=== PATIENT | male | born 1960 | race Caucasian/White ===

== ENCOUNTER 2019-02-15 20:16 | Inpatient (IN) | payer OTHER ==
[~2019-02-15] VITALS: Ht 167.6 cm; Wt 75.0 kg
[2019-02-15 20:39] VITALS: Ht 167.6 cm; Wt 75.0 kg
--- NOTE | 2019-02-15 20:54 | NUR ---
PT BROUGHT IN BY FAMILY FOR WORSENING COUGH, AGITATION, AND SOB X 3 DAYS. PT AWAKE, ALERT, RESPIRATIONS APPEARS EVEN AND SYMMETRIC BUT SHALLOW AND LABORED. 02 SAT WAS IMMEDIATELY ASSESSED AND NOTED TO BE 75% ON ROOM AIR. PATIENT WAS THEN PLACED ON 10L NONREBREATHER MASK AND NOTED TO BE 98% SHORTLY AFTER. FAMILY AND CAREGIVER AT BEDSIDE. DR. OAKLEY WAS IN FOR MSE. SAFETY PRECAUTIONS IN PLACE. WILL CONTINUE TO MONITOR
--- NOTE | 2019-02-15 21:12 | NUR ---
RT AT BEDSIDE
--- NOTE | 2019-02-15 21:14 | NUR ---
RT AT BEDSIDE
[2019-02-15 21:16] LABS: BASOPHIL % 0.3 % (0-2); PLATELET COUNT 246 x10^3mcL (130-400); RED CELL DISTRIBUTION WIDTH 13.1 % (11.5-14.5)
--- NOTE | 2019-02-15 21:18 | NUR ---
RT AT BEDSIDE CURRENTLY GIVING RT TREATMENT. XRAY AT BEDSIDE
[2019-02-15 21:24] LABS: CALCIUM 9.3 mg/dL (8.5-10.1); CARBON DIOXIDE 29.7 mmol/L (21-32); CHLORIDE SERUM 102 mmol/L (98-107); GFR1 > 60 mL/min; GLUCOSE SERUM 122 mg/dL (74-106); POTASSIUM SERUM 4.5 mmol/L (3.5-5.1); SODIUM SERUM 138 mmol/L (136-145)
[2019-02-15 21:30] LABS: ALKALINE PHOSPHATASE 63 U/L (46-116); ALT/SGPT 17 U/L (16-63); AST/SGOT 11 U/L (15-37); BILIRUBIN TOTAL 0.23 mg/dL (0.20-1.00); TOTAL PROTEIN, SERUM 6.5 g/dL (6.4-8.2)
[2019-02-15 21:33] LABS: ALBUMIN 3.2 g/dL (3.4-5.0)
--- NOTE | 2019-02-15 21:47 | NUR ---
MEDICATED PER EMAR. PT AWAKE, ALERT, RESPIRATIONS APPEARS LESS LABORED AT THIS TIME. WILL CONTINUE TO MONITOR. SAFETY PRECAUTIONS IN PLACE
--- NOTE | 2019-02-15 22:15 | NUR ---
PATIENT PLACED ON 2L/NC BY DR. OAKLEY. WILL MONITOR CLOSELY.
--- NOTE | 2019-02-15 22:32 | NUR ---
DR. OAKLEY NOTIFIED 02 SAT 91% ON 2L/NC. PER DR. OAKLEY, INCREASE TO 4L. INCREASED REQUESTED. WILL CONTINUE TO MONITOR. RESPIRATIONS EVEN AND UNLABORED AT THIS TIME
[2019-02-15] MEDS ORDERED: BUSPIRONE HCL10 MG PO (23:33)
[2019-02-15] MEDS ORDERED: RISPERIDONE3 M2 PO (23:33)
[2019-02-15] MEDS ORDERED: PAROXETINE HCL40 M1 PO (23:33)
[2019-02-15] MEDS ORDERED: BENZTROPINE MESY1 MG PO (23:33)
--- NOTE | 2019-02-15 23:40 | NUR ---
REPORT GIVEN TO THAO DODGE, ALL QUESTIONS AND CONCERNS WERE ADDRESSED
--- NOTE | 2019-02-15 23:50 | NUR ---
RECEIVED PT VIA [facility] ACCOMPANIED BY JOSÉ RN, UI UX WEB DEVELOPER, PT'S NEICE, AND PT'S CAREGIVER. PT IS A&OX4, ABLE TO FOLLOW COMMANDS. AUDIBLE EXPIRATORY WHEEZES NOTED. ON 2L NASAL CANNULA. NO SIGNS OF LABORED BREATHING. DENIES CP AND PAIN. ROOM 257-B. WILL RESUME CARE.
--- NOTE | 2019-02-15 23:55 | NUR ---
PT TRANSFERED TO TELE WITHOUT ANY S/S OF ACUTE DISTRESS. NO ISSUES ENCOUNTERED. SURU RN ACCEPTED PATIENT
[2019-02-16] VITALS (8 sets, daily range): BP systolic 88–107; BP diastolic 34–55
--- NOTE | 2019-02-16 00:12 | NUR ---
RECEIVED PT FROM ED VIA [email or web address]. ORIENTED PT TO ROOM AND SURROUNDINGS. IV NOTED TO LAC PATENT AND INTACT. TELE 21 PLACED ON PT READING SR WITH ELEVATED T WAVE. INSTRUCTED PT ON THE USE OF CALL LIGHT FOR ASSISTANCE. ENDORSED PT TO PRIMARY NURSE THAO
--- NOTE | 2019-02-16 00:27 | NUR ---
RECEIVED UPDATES FROM [facility]. PT IS A&OX4, ABLE TO FOLLOW COMMANDS. AUDIBLE EXPIRATORY WHEEZES NOTED. ON 2L NASAL CANNULA. NO SIGNS OF LABORED BREATHING. DENIES CP AND PAIN. STARTED MAINTENANCE FLUIDS - NS @ 100ML/HR. PT COMFORTABLE AND RESTING. X3 SIDE RAILS UP, BED IN LOWEST POSITION, CALL LIGHT WITHIN REACH. WILL CONTINUE TO MONITOR.
[2019-02-16 02:01] LABS: CHOLESTEROL/HDL RATIO 3.3; MAGNESIUM 2.1 mg/dL (1.8-2.4); PHOSPHOROUS 4.6 mg/dL (2.5-4.9)
[2019-02-16 02:08] LABS: FREE T4 0.93 ng/dL (0.76-1.46); FREE THYROXINE INDEX 1.8 ug/dL (1.4-4.5); T4(THYROXINE) 5.2 ug/dL (4.7-13.3)
[2019-02-16 02:22] LABS: T3 TOTAL 0.94 ng/mL
--- NOTE | 2019-02-16 03:20 | NUR ---
PT RESTING AND COMFORTABLE. BREATHING E/U. NO ACUTE DISTRESS NOTED. X3 SIDE RAILS UP, BED IN LOWEST POSITION, CALL LIGHT WITHIN REACH.
[2019-02-16 06:07] LABS: PLATELET COUNT 218 x10^3mcL (130-400); RED CELL DISTRIBUTION WIDTH 13.3 % (11.5-14.5)
[2019-02-16 06:28] LABS: BASOPHIL % 0 % (0-2)
--- NOTE | 2019-02-16 06:33 | NUR ---
PT URINATED ON SELF, PANTS, AND BED. LINEN CHANGED, GOWN CHANGED, AND PT CLEANED. AUDIBLE EXPIRATORY WHEEZES. REMAINS ON 2L NASAL CANNULA. BREATHING E/U. NO ACUTE DISTRESS NOTED. X3 SIDE RAILS UP, BED IN LOWEST POSITION, CALL LIGHT WITHIN REACH. WILL ENDORSE CARE TO ONCOMING RN.
[2019-02-16 06:55] LABS: CALCIUM 9.1 mg/dL (8.5-10.1); CHLORIDE SERUM 101 mmol/L (98-107); GFR1 > 60 mL/min; GLUCOSE SERUM 159 mg/dL (74-106); MAGNESIUM 2.1 mg/dL (1.8-2.4); PHOSPHOROUS 3.4 mg/dL (2.5-4.9); POTASSIUM SERUM 4.7 mmol/L (3.5-5.1); SODIUM SERUM 140 mmol/L (136-145)
--- NOTE | 2019-02-16 07:15 | NUR ---
RECIEVED PT FROM NIGHT NURSE. PT WAS STANDING NEXT TO BED SAYING THAT HE NEEDED A NEW IV. PT ASKED TO LAY BACK DOWN IN BED AND A NEW IV WILL BE STARTED. PT VERY TALKATIVE AND STUTTERING WHEN TALKING, AT TIMES COMMUNICATION WAS MUMBLED AND DIFFICULT TO UNDERSTAND BECAUSE THE PT WILL TALK VERY FAST. PT LOOKS TO BE IN NO ACUTE DISTRESS AT THIS TIME, PT STATES THAT HE FEELS A LITTLE BIT OF CHEST PAIN BUT "DOESN'T HURT REALLY BAD." EXPIRATORY WHEEZES TO RIGHT SIDE AND INSPIRATORY AND EXPIRATORY WHEEZES TO LEFT SIDE OF LUNGS. RESPRIATIONS EVEN AND UNLABORED ON 3L NC. WILL START A NEW IV. BED IN LOWEST POSITION. CALL LIGHT WITHIN REACH. WILL CONTINUE TO MONITOR.
--- NOTE | 2019-02-16 13:25 | NUR ---
NORMAL SALINE BOLUS COMPLETED ORDERED. POST BOLUS VITAL SIGNS WHILE SITTING ON THE EDGE OF THE BED IS BP: 107/49, MAP: 72, HR: 64, O2: 98. VITAL SIGNS OF PT LAYING DOWN BP: 102/45 MAP 68, HEART RATE: 97. PT LOOKS TO BE IN NO ACUTE DISTRESS AT THIS TIME. WILL CONTINUE TO MONTIOR. MAINTENCE FLUIDS 100ML/HR INFUSING TO RIGHT HAND IV.
--- NOTE | 2019-02-16 14:20 | NUR ---
PT TOLERATED BLOW BY BREATHING TREATMENT WITH NO ISSUES. PTS SPO2 PRE TX WAS 97% ON 3LNC, TITRATED LITER FLOW DOWN TO 2LPM. WILL CONTINUE TO MONITOR.
--- NOTE | 2019-02-16 18:01 | NUR ---
PT IS SITTING ON EDGE OF BED. RESPIRATIONS EVEN AND UNLABROED WITH AUDIBLE WHEEZING ON 3L NC. PT LOOKS TO BE IN NO ACUTE DISTRESS AND DENIES ANY PAIN AT THIS TIME. NON PRODUCTIVE COUGH PRESENT. PT IS AWAKE, ALERT AND ORIENTED X4 BUT WHEN ASKED QUESTIONS IS AT TIMES DIFFICULT TO UNDERSTAND, SPEECH IS MUMBLED AND IS VERY RAPID AND STUTTERS. PT HAS VOIDED VIA URINAL MULTIPLE TIMES THIS SHIFT WITH SMALL AMOUNTS OF URINE PER EACH VOID, PT ASKS FOR THE URINAL. IV SITE PATENT WITH NO SIGNS OF ERYTHEMA OR SWELLING, IV H/L PER DR. PEMBERTON. BED IN LOWEST POSITION, CALL LIGHT WITHIN REACH. WILL ENDORSE TO ONCOMING SHIFT.
--- NOTE | 2019-02-16 20:00 | NUR ---
RECEIVED PT IN BED, SITTING UP IN BED. ALERT AND ORIENTED. ABLE TO FOLLOW COMMANDS. PRAIRIE BAND. ABLE TO VERBALIZE NEEDS. SR ON THE MONITOR, DENIES CP OR ANY DISCOMFORT AT THIS TIME. HL TO RT HAND, INTACT AND PATENT. NO COMPLAINTS NOTED AT THIS TIME. AMBULATORY. VOIDING FREELY.CALL LIGHT PLACED WITHIN REACH. INSTRUCTED TO CALL FOR ASSIST. IF NEEDED.PT VERBALIZED UNDERSTANDING. WILL CONTINUE TO MONITOR.
--- NOTE | 2019-02-17 02:44 | NUR ---
RESTING QUIETLY WITH EYES CLOSED, APPEARS ASLEEP. EASILY AROUSABLE. RESP. EVEN AND UNLABORED. NO ACUTE DISTRESS NOTED. WILL CONTINUE TO MONITOR.
[2019-02-17 05:31] VITALS: BP 117/58
--- NOTE | 2019-02-17 06:17 | NUR ---
AFEBRILE AND VITAL SIGNS STABLE. RESP. EVEN AND UNLABORED.[address], NO ACUTE DISTRESS NOTED. DUE MEDS GIVEN ORDERED, ROSE. WELL. HL INTACT AND PATENT. AMBULATES TO THE BATHROOM, VOIDING FREELY. HAD X1 MD SOFT BM. DENIES ANY DISCOMFORT AT THIS TIME. WILL CONTINUE TO MONITOR.
[2019-02-17 06:29] LABS: PLATELET COUNT 243 x10^3mcL (130-400); RED CELL DISTRIBUTION WIDTH 13.5 % (11.5-14.5)
[2019-02-17 06:37] LABS: BASOPHIL % 0 % (0-2)
[2019-02-17 06:49] LABS: CALCIUM 8.6 mg/dL (8.5-10.1); CHLORIDE SERUM 100 mmol/L (98-107); CREATININE SERUM 0.9 mg/dL (0.7-1.3); GFR1 > 60 mL/min; GLUCOSE SERUM 126 mg/dL (74-106); MAGNESIUM 2.1 mg/dL (1.8-2.4); PHOSPHOROUS 3.7 mg/dL (2.5-4.9); POTASSIUM SERUM 4.4 mmol/L (3.5-5.1); SODIUM SERUM 138 mmol/L (136-145)
--- NOTE | 2019-02-17 07:13 | NUR ---
RECEIVED PT FROM SHIFT NURSE A/OX3 SITTING ON EDGE OF BED. APPEARS IN NO ACUTE DISTRESS. RESP EVEN AND UNLABORED ON 3L NC. IV INTACT AND PATENT. CALL LIGHT WITHIN REACH. WILL CONTINUE TO MONITOR.
[2019-02-17 09:00] VITALS: BP 115/55
--- NOTE | 2019-02-17 10:02 | NUR ---
PT RESTING AND APPEARS IN NO ACUTE DISTRESS. BED IN LOW POSITION. CALL LIGHT WITHIN REACH. WILL CONTINUE TO MONITOR.
[2019-02-17 10:25] LABS: microscopic required? NO
[2019-02-17 10:46] LABS: urine erythrocyte NEGATIVE (NEGATIVE)
--- NOTE | 2019-02-17 11:23 | NUR ---
ECHO NOT DONE. PT. WITH UNSPECIFED PSYCHOSIS/ UNCOOPRATIVE WITH TEST.
--- NOTE | 2019-02-17 12:45 | NUR ---
PT SITTING ON EDGE OF BED EATING LUNCH. NO ACUTE DISTRESS NOTED. CALL LIGHT WITHIN REACH. WILL CONTINUE TO MONITOR.
[2019-02-17 13:10] VITALS: BP 110/52
--- NOTE | 2019-02-17 15:10 | NUR ---
PT SITTING ON EDGE OF BED DRINKING SPRITE. APPEARS IN NO ACUTE DISTRESS. CALL LIGHT WITHIN REACH. WILL CONTINUE TO MONITOR.
--- NOTE | 2019-02-17 18:16 | NUR ---
PT SITTING ON BED. NO ACUTE DISTRESS NOTED. RESP EVEN AND UNLABORED ON 2L NC. 02 SAT 98%. DENIES SOB. HEPLOCK PATENT. BED IN LOW POSITION. CALL LIGHT WITHIN REACH. WILL BE ENDORSED.
--- NOTE | 2019-02-17 19:24 | NUR ---
SHIFT REASSESSMENT DONE.PATIENT AMBULATORY,SEEN IN NURSES STATION,WALKING AROUND.STEADY GAIT.HEPLOCK R HAND.MEDSURG PATIENT.SKIN INTACT.VOIDING PER URINAL.ON LOVENOX FOR ELEVATED TROPONIN,CALLLIGHT IN REACH.
[2019-02-17 21:33] VITALS: BP 126/69
--- NOTE | 2019-02-17 21:44 | NUR ---
ALL MEDS GIVEN WITHOUT ANY INCIDENT.
--- NOTE | 2019-02-18 00:39 | NUR ---
1 AM ATB GIVEN AT THIS TIME WITH NO INCIDENT.SLEEPING COMFORTABLY.
--- NOTE | 2019-02-18 02:39 | NUR ---
CHECKED AT INTERVALS,SLEEPING,CALL LIGHT IN REACH.
--- NOTE | 2019-02-18 06:05 | NUR ---
I AND O MEASURED.MEDS FOR THIS AM GIVEN WITH NO INCIDENT.WILL ENDORSE TO NEXT SHIFT.
[2019-02-18 06:26] VITALS: BP 114/64
[2019-02-18 06:28] LABS: CALCIUM 8.8 mg/dL (8.5-10.1); CARBON DIOXIDE 34.2 mmol/L (21-32); CHLORIDE SERUM 99 mmol/L (98-107); CREATININE SERUM 0.8 mg/dL (0.7-1.3); GFR1 > 60 mL/min; GLUCOSE SERUM 125 mg/dL (74-106); POTASSIUM SERUM 3.7 mmol/L (3.5-5.1); SODIUM SERUM 130 mmol/L (136-145)
[2019-02-18 06:57] LABS: PLATELET COUNT 256 x10^3mcL (130-400); RED CELL DISTRIBUTION WIDTH 13.6 % (11.5-14.5)
[2019-02-18 07:10] LABS: BASOPHIL % 0 % (0-2)
--- NOTE | 2019-02-18 09:55 | NUR ---
AAO TO SELF. LUNGS WITH EXP WHEEZES BILATERALLY. O2 SAT ON 2L NC, IS 100%. BS'S ACTIVE TIMES 4. PERIPHERAL PULSES PALPABLE. NO EDEMA. IV SITE CDI. NO C/O PAIN.
[2019-02-18 10:12] VITALS: BP 126/63
--- NOTE | 2019-02-18 10:50 | NUR ---
PATIENT REFUSED ECHOCARDIOGRAM-STATES HE WANTS TO SLEEP
[2019-02-18] MEDS ORDERED: PREDNISONE1 MG PO (10:57)
[2019-02-18] MEDS ORDERED: LEVAQUIN750 MG PO (10:57)
--- NOTE | 2019-02-18 11:10 | NUR ---
HE REFUSED THE ECHO TODAY, PER [facility] LAUNDRY MACHINE MECHANIC. I NOTIFIED ADAM LARRY.
[2019-02-18 11:12] VITALS: BP 126/63
--- NOTE | 2019-02-18 16:24 | NUR ---
DISCHARGE INSTRUCTIONS WERE GIVEN TO ALMOND PASTE MOLDER NATALIE SANCHEZ AND ALSO PRESCRIPTION. DC'D THE SALINE LOCK ANGIO INTACT. HER VERBALIZED "I UNDERSTAND" TO ALL INSTRUCTIONS.
--- NOTE | 2019-02-19 09:14 | NUR ---
ECHOCARDIOGRAM NOT DONE-DISCHARGED
== END 2019-02-18 17:00 | DRG 280 ==
LOC: ED 20:16 → DU 23:06 → MU 23:06 → DU 23:50 → MU 02-17 14:15
PROVIDERS: Emergency Medicine; ADMIT Internal Medicine
DX: I21.A1 Myocardial infarction type 2 (principal); J96.21 Acute and chronic respiratory failure with hypoxia; J44.1 Chronic obstructive pulmonary disease with (acute) exacerbation; J44.0 Chronic obstructive pulmonary disease with (acute) lower respiratory infection; E44.1 Mild protein-calorie malnutrition; I50.9 Heart failure, unspecified; J20.9 Acute bronchitis, unspecified; F29 Unspecified psychosis not due to a substance or known physiological condition; F70 Mild intellectual disabilities; Z68.22 Body mass index [BMI] 22.0-22.9, adult; Z87.891 Personal history of nicotine dependence
CPT/HCPCS: 36600; 83880; 84439; J1650; J1940; J1956; J2920; J2930; J7030; J7613; J7620; J7644; Q0092